=== PATIENT | female | born 1990 | race Hispanic/Latino ===

== ENCOUNTER 2022-05-17 13:58 | Outpatient (CLI) | payer BC | END 2022-05-17 13:59 | disposition home or self-care (01) | LOC: BICULT 13:58 | PROVIDERS: ATTEND Registered Nurse Hospice | DX: N64.4 Mastodynia (principal) ==

== ENCOUNTER → 2022-05-24 | Day surgery (SDC) | payer BC | END | disposition home or self-care (01) | LOC: BICULT 12:37 | PROVIDERS: ATTEND Registered Nurse Hospice | PROC: 0HBU3ZX Excision of Left Breast, Percutaneous Approach, Diagnostic (ICD-10-PCS; principal; 2022-05-24) | DX: D24.2 Benign neoplasm of left breast (principal) | CPT/HCPCS: 19083; 88305 ==